=== PATIENT | female | born 1990 | race Caucasian/White ===

== ENCOUNTER 2018-10-11 10:09 | Inpatient (IN) ==
[2018-10-11] MEDS ORDERED: OXYTOCIN 30 UNITS/500 ML BAG IV PRN ×2 (10:42→13:06)
--- NOTE | 2018-10-11 10:48 | History & Physical Report ---
Date of Service October 11, 2018 Assessment & Plan (1) Group B streptococcal carriage complicating : Patient has refused all antibiotic treatment for Group B Strep despite multiple counseling encounters for same. She refuses again today. She is aware of the risks of Group B Strep infection up to and including . Present on Admission?: Yes (2) renal anomaly: Peds aware. Present on Admission?: Yes History of Present Illness Chief Complaint: Contractions Primary Care Provider: NO PCP [id number] sent from office due to contractions and cervical change as compared to exam by that same provider yesterday. No LOF, no VB. Of note patient has been refusing treatment for Group B Strep despite being counseled by multiple providers and pediatricians. Allergies Allergy/AdvReac Type Severity Reaction Status Date / Time No Known Allergies Allergy Unverified 12/09/10 09:04 Home Medications Home Medications Medication Instructions Recorded Confirmed Type vit-iron fum-folic ac 1 tab PO DAILY 10/09/18 10/10/18 History [ Vitamin] Patient History Medical History renal anomaly Group B streptococcal carriage complicating Late care affecting Social History Preferred Language: Korean Beliefs That Will Affect Care: None marital status: Current Living Situation: Spouse Feels Safe at Home: Yes Smoking Status: Never smoker Second Hand Exposure: No Hx Alcohol Use: No Hx Substance Use: No Review of Systems All systems reviewed & are unremarkable except as noted in HPI & below Physical Exam Constitutional: WD/WN, vitals as above Eyes: PERRL, conjunctivae normal, anicteric sclerae ENMT: external ear and nose normal, oropharynx normal Neck: trachea midline, no thyromegaly Respiratory: normal respiratory effort; no respiratory distress Cardiovascular: Rate/Rhythm: regular rate and regular rhythm Gastrointestinal (Abdomen): Gravid / AGA, nontender Musculoskeletal: no cyanosis or clubbing, extremities motor strength 5/5 Skin: no rashes, warm and dry Neurologic: patellar DTR's 2+ bilat, sensation intact Psychiatric: A+Ox3, euthymic affect Genitourinary: Speculum/Bimanual Exam: uterus nontender OB Exam Abdomen: + vertex, + estimated weight (7) and + regular contractions (Q3) Manual OB Exam: + cervical dilation 4 cm, + cervical effacement 90%, + station -2 and + amniotic fluid (No leaking evident) OB Exam Monitor Tracing: + external FHT monitor used, + external uterine monitor used and + category I Lymphatic: no cervical or axillary lymphadenopathy Results & Data Vital Signs (Past 12 Hours) Vital Signs Pulse BP 10/11/18 10:31 80 138/91
[2018-10-11] MEDS: LACTATED RINGER'S 1,000 ML IV PRN ×3 (10:52→17:39)
[2018-10-11 11:03] LABS: Hematocrit (blood only) 36.2 % (37-47); Hemoglobin 12.4 g/dL (12.0-16.0); Mean Corpuscular Volume 87.2 fL (80-100); Mean Platelet Volume 10.8 fL (7.4-10.4); Platelet Count 224 K/uL (130-400); RDW Coefficient of Variation 13.4 % (11.5-14.5); Red Blood Count 4.15 M/uL (4.2-5.4); White Blood Count 14.73 K/uL (4.8-10.8)
[2018-10-11 11:06] LABS: Mean Corpuscular Hgb Conc 34.3 g/dL (32-36)
[2018-10-11] MEDS ORDERED: BUPIVACAINE 0.25% 30 ML VIAL ONE (11:16)
[2018-10-11] MEDS ORDERED: ePHEDrine sulfate 50 MG/ML AMP ONE (11:17)
[2018-10-11] MEDS ORDERED: fentaNYL citrate 100 MCG/2 ML VIAL ONE (11:17)
[2018-10-11] MEDS ORDERED: fentaNYL 2MCG/ML ROPIV 1.25MG/ML 100 ML BAG EPI ONE (11:18)
[2018-10-11 11:20] LABS: Albumin Level 2.8 gm/dl (3.4-5.0); BUN Creatinine Ratio 7.5 (10-20); Bilirubin Direct 0.1 mg/dl (0-0.2); Calcium 8.8 mg/dl (8.5-10.1); Creatinine Clr Calc Pharmacy 98.7 ml/min; Est GFR (African American) 122.6; Est GFR (Non-African American) 105.8; Potassium 4.3 mmol/L (3.5-5.1)
[2018-10-11 11:23] LABS: Albumin Globulin Ratio 0.7 (0.9-2); Bilirubin,Total 0.5 mg/dl (0.2-1); Globulin 4.1 gm/dl (2.5-4.0); Total Protein 6.9 gm/dl (6.4-8.2)
[2018-10-11] MEDS: ePHEDrine sulfate 50 MG/ML AMP IV PRN ×2 (12:05→12:06)
[2018-10-11] MEDS ORDERED: PENICILLIN G POTASSIUM 6 MU in DEXTROSE 5% 250 ML IV STA (12:15)
--- NOTE | 2018-10-11 12:26 | Anesthesiology Consultation ---
Date of Service October 11, 2018 Assessment & Plan Chart Review Chart Review: Acceptable Risk for Surgery and Patient NOT seen in Pre Admission Testing Consults Requested none History Height/Weight Height: 5 ft 1 in Weight: 70.76 kg Allergies Allergy/AdvReac Type Severity Reaction Status Date / Time No Known Allergies Allergy Unverified 12/09/10 09:04 Medications Home Medications Medication Instructions Recorded Confirmed Last Taken vit-iron fum-folic ac 1 tab PO DAILY 10/09/18 10/11/18 10/09/18 [ Vitamin] Past Medical History Medical History renal anomaly Group B streptococcal carriage complicating Late care affecting Past Family History Family History Other No history of previous surgery No known health problems Social History Smoking Status: Never smoker Hx Alcohol Use: No Hx Substance Use: No substance use type: does not use Physical Exam Vital Signs Last Vital Signs Temp 36.4 C L 10/11/18 10:25 Pulse 105 H 10/11/18 12:22 Resp 24 10/11/18 10:25 BP 126/60 10/11/18 12:18 Pulse Ox 97 10/11/18 12:22 Testing Laboratory Results 10/11/18 10:48 10/11/18 10:48
[2018-10-11] MEDS ORDERED: NALOXONE HCL 0.4 MG/1 ML VIAL/CARP IV PRN (12:30)
[2018-10-11] MEDS ORDERED: NALBUPHINE HCL INJ 10 MG/ML AMP IV PRN (12:30)
[2018-10-11] MEDS ORDERED: ONDANSETRON INJ 2 MG/ML 2 ML VIAL IV PRN (12:30)
[2018-10-11] MEDS ORDERED: NALOXONE HCL 1 MG in SODIUM CHLORIDE 0.9% 1000ML 1,000 ML IV PRN (12:30)
[2018-10-11] MEDS ORDERED: DiphenhydrAMINE HCL 50 MG/ML VIAL IV PRN (12:30)
--- NOTE | 2018-10-11 13:14 | Labor Progress Brief Note ---
Date of Service October 11, 2018 Subjective Comfortable with epidural. Lengthy discussion at bedside once again with patient and FOB. They both refuse any antibiotic to be given due to GBS status of mom. When asked to explain their reasoning, they state that "babies shouldn't be given antibiotics unless they are already sick." Also, "We don't want any vaccines or antibiotics. We want our baby to grow up strong and we think giving things to prevent illness blocks the baby from developing its own defenses." I did my best to educate them on the incorrect logic of their choice and the evidence for our recommendation of both antibiotics and vaccines. I discussed that the baby would be held for observation by the magnetic resonance imaging director for at least 48 hours due to the need for diagnosis of any infection that occurs. We reviewed again that GBS sepsis can and sometimes does result in , and that if GBS infection occurred the infant would require antibiotics far in excess of the exposure it would face from prophylaxis. They refuse to accept antibiotics. They do accept augmentation of labor. Assessment & Plan (1) Normal labor and delivery: Patient with labor, GBS positive, refuses antibiotic prophylaxis, accepts augmentation of labor, recommended due to slow change and contractions only every 5 min. AROM reveals thick meconium. Explained significance and risks to parents. Pitocin ordered. Present on Admission?: Yes Physical Exam Genitourinary: Manual OB Exam: + cervical dilation 5 cm, + cervical effacement 100% and + station -2 OB Exam Monitor Tracing: + external uterine monitor used (Q4-5min) and + category I AROM for copious thick particulate meconium fluid. Results & Data Vital Signs (Past 12 Hours) Vital Signs Temp Pulse Resp BP Pulse Ox 10/11/18 13:05 160 H 90/61 L 10/11/18 13:02 105 H 98 10/11/18 12:59 108 H 116/58 L 10/11/18 12:57 100 H 96 10/11/18 12:54 107 H 115/57 L 10/11/18 12:52 102 H 97 10/11/18 12:50 93 H 118/56 L 10/11/18 12:47 105 H 97 10/11/18 12:44 102 H 117/60 10/11/18 12:42 104 H 96 10/11/18 12:40 100 H 116/58 L 10/11/18 12:37 119 H 97 10/11/18 12:35 109 H 120/56 L 10/11/18 12:32 105 H 97 10/11/18 12:29 109 H 122/56 L 10/11/18 12:27 119 H 98 10/11/18 12:25 103 H 119/59 L 10/11/18 12:22 105 H 97 10/11/18 12:18 112 H 126/60 10/11/18 12:17 120 H 98 10/11/18 12:16 110 H 121/60 10/11/18 12:14 104 H 129/62 10/11/18 12:12 91 H 137/72 98 10/11/18 12:10 59 L 137/80 10/11/18 12:09 72 125/72 10/11/18 12:07 84 99 10/11/18 12:06 148 H 66/35 L 10/11/18 12:04 123 H 86/43 L 10/11/18 12:03 150 H 116/51 L 10/11/18 12:02 149 H 99 10/11/18 12:00 99 H 131/68 10/11/18 11:58 94 H 121/79 10/11/18 11:57 91 H 96 10/11/18 11:56 87 123/78 10/11/18 11:52 99 H 99 10/11/18 11:47 97 H 98 10/11/18 11:44 87 127/82 10/11/18 11:42 82 98 10/11/18 10:31 80 138/91 10/11/18 10:25 36.4 C L 24
--- NOTE | 2018-10-11 13:51 | Labor Progress Brief Note ---
Date of Service October 11, 2018 Assessment & Plan (1) Group B streptococcal carriage complicating : Patient and FOB were presented with a refusal of medical treatment form detailing the risks and benefits of Group B Strep prophylaxis, and releasing the hospital and providers from liability resulting from their refusal. At this, the FOB said that he did not want to sign the form. We discussed that either the patient should be receiving prophylaxis or we would need to document that this form had been read to and reviewed with the couple and that they were aware of its contents and were still refusing treatment, regardless of whether they elected to sign, due to the serious possible consequences of their choice. The FOB asked for time to discuss with his and we (LEONARD Carson) left the room for several minutes. On our return the FOB stated that the patient wanted to accept the antibiotic but ONLY if it is nothing beyond penicillin, that is the only one we accept. We reviewed that the antibiotic we plan to use is penicillin as was documented having been discussed with them at some length on several previous occasions. We confirmed that the patient is not known to be penicillin allergic. We discussed that ideally two doses would be received prior to , and that we are now getting a late start given their failure to accept treatment prior to this point. We will redose at the usual interval and hope for a minimum of 2 doses prior to delivery, and that if less than 2 doses are received prior to , monitoring for 48 hours is still going to be required. They are aware that pitocin is also ordered to help minimize the length of labor and possible time of exposure to Group B Strep bacteria, and they consent to use of pitocin. Present on Admission?: Yes Results & Data Vital Signs (Past 12 Hours) Vital Signs Temp Pulse Resp BP Pulse Ox 10/11/18 13:39 110 H 120/75 10/11/18 13:38 129 H 99 10/11/18 13:35 129 H 123/75 10/11/18 13:33 103 H 99 10/11/18 13:29 117 H 120/63 10/11/18 13:28 100 H 97 10/11/18 13:24 91 H 119/64 10/11/18 13:23 98 H 97 10/11/18 13:20 107 H 128/56 L 10/11/18 13:18 112 H 98 10/11/18 13:15 139 H 101/62 10/11/18 13:13 140 H 98 10/11/18 13:10 146 H 100/56 L 10/11/18 13:08 124 H 97 10/11/18 13:05 160 H 90/61 L 10/11/18 13:02 105 H 98 10/11/18 12:59 108 H 116/58 L 10/11/18 12:57 100 H 96 10/11/18 12:54 107 H 115/57 L 10/11/18 12:52 102 H 97 10/11/18 12:50 93 H 118/56 L 10/11/18 12:47 105 H 97 10/11/18 12:44 102 H 117/60 10/11/18 12:42 104 H 96 10/11/18 12:40 100 H 116/58 L 10/11/18 12:37 119 H 97 10/11/18 12:35 109 H 120/56 L 10/11/18 12:32 105 H 97 10/11/18 12:29 109 H 122/56 L 10/11/18 12:27 119 H 98 10/11/18 12:25 103 H 119/59 L 10/11/18 12:22 105 H 97 10/11/18 12:18 112 H 126/60 10/11/18 12:17 120 H 98 10/11/18 12:16 110 H 121/60 10/11/18 12:14 104 H 129/62 10/11/18 12:12 91 H 137/72 98 10/11/18 12:10 59 L 137/80 10/11/18 12:09 72 125/72 10/11/18 12:07 84 99 10/11/18 12:06 148 H 66/35 L 10/11/18 12:04 123 H 86/43 L 10/11/18 12:03 150 H 116/51 L 10/11/18 12:02 149 H 99 10/11/18 12:00 99 H 131/68 10/11/18 11:58 94 H 121/79 10/11/18 11:57 91 H 96 10/11/18 11:56 87 123/78 10/11/18 11:52 99 H 99 10/11/18 11:47 97 H 98 07/30/19 11:44 87 127/82 10/11/18 11:42 82 98 10/11/18 10:31 80 138/91 10/11/18 10:25 36.4 C L 24
--- NOTE | 2018-10-11 17:32 | Labor Progress Brief Note ---
Date of Service October 11, 2018 Subjective Feeling pressure, otherwise comfortable with epidural. Assessment & Plan (1) Normal labor and delivery: Pitocin was not running when I entered the room. The contraction pattern was felt previously to be adequate by RN so it was not started. At this time given lack of cervical change, pitocin to be run as ordered. Present on Admission?: Yes (2) Group B streptococcal carriage complicating : Penicillin second dose to be hung in near future; patient and FOB continue to be agreeable at this time. Present on Admission?: Yes Physical Exam Genitourinary: Manual OB Exam: + cervical dilation 5 cm, + cervical effacement 90%, + station -2 and + amniotic fluid meconium OB Exam Monitor Tracing: + external FHT monitor used, + external uterine monitor used (Q3-4m) and + category I Results & Data Vital Signs (Past 12 Hours) Vital Signs Temp Pulse Resp BP Pulse Ox 10/11/18 17:23 83 97 10/11/18 17:18 84 97 10/11/18 17:14 86 120/73 10/11/18 17:13 80 97 10/11/18 17:08 100 H 98 10/11/18 17:03 82 97 10/11/18 16:58 92 H 97 10/11/18 16:53 85 97 10/11/18 16:48 80 97 10/11/18 16:44 36.5 C 83 18 131/86 10/11/18 16:43 105 H 97 10/11/18 16:38 82 97 10/11/18 16:33 75 97 10/11/18 16:30 73 122/65 10/11/18 16:28 85 96 10/11/18 16:23 72 97 10/11/18 16:18 81 96 10/11/18 16:16 75 124/68 10/11/18 16:13 94 H 97 10/11/18 16:08 71 97 10/11/18 16:03 74 97 10/11/18 16:01 69 109/66 10/11/18 15:58 77 97 10/11/18 15:53 83 96 10/11/18 15:48 82 97 10/11/18 15:46 84 118/66 10/11/18 15:43 81 97 10/11/18 15:38 76 97 10/11/18 15:33 86 96 10/11/18 15:31 80 112/65 10/11/18 15:28 86 97 10/11/18 15:23 78 97 10/11/18 15:18 86 96 10/11/18 15:16 83 115/67 10/11/18 15:13 82 97 10/11/18 15:08 84 97 10/11/18 15:03 88 98 10/11/18 14:59 36.6 C 88 16 118/72 10/11/18 14:58 89 97 10/11/18 14:53 98 H 97 10/11/18 14:48 97 H 97 10/11/18 14:45 87 121/76 10/11/18 14:43 111 H 98 10/11/18 14:38 92 H 97 10/11/18 14:33 99 H 98 10/11/18 14:29 88 118/65 10/11/18 14:28 92 H 98 10/11/18 14:23 97 H 99 10/11/18 14:18 102 H 100 10/11/18 14:15 92 H 119/64 10/11/18 14:13 90 99 10/11/18 14:08 93 H 100 10/11/18 14:03 99 H 99 10/11/18 14:02 36.5 C 18 10/11/18 14:00 96 H 121/71 10/11/18 13:58 115 H 99 10/11/18 13:53 103 H 99 10/11/18 13:48 105 H 98 10/11/18 13:44 99 H 120/71 10/11/18 13:43 104 H 99 10/11/18 13:39 110 H 120/75 10/11/18 13:38 129 H 99 10/11/18 13:35 129 H 123/75 10/11/18 13:33 103 H 99 10/11/18 13:29 117 H 120/63 10/11/18 13:28 100 H 97 10/11/18 13:24 91 H 119/64 10/11/18 13:23 98 H 97 10/11/18 13:20 107 H 128/56 L 10/11/18 13:18 112 H 98 10/11/18 13:15 139 H 101/62 10/11/18 13:13 140 H 98 07/30/19 13:10 146 H 100/56 L 10/11/18 13:08 124 H 97 10/11/18 13:05 160 H 90/61 L 10/11/18 13:02 105 H 98 10/11/18 12:59 108 H 116/58 L 10/11/18 12:57 100 H 96 10/11/18 12:54 107 H 115/57 L 10/11/18 12:52 102 H 97 10/11/18 12:50 93 H 118/56 L 10/11/18 12:47 105 H 97 10/11/18 12:44 102 H 117/60 10/11/18 12:42 104 H 96 10/11/18 12:40 100 H 116/58 L 10/11/18 12:37 119 H 97 10/11/18 12:35 109 H 120/56 L 10/11/18 12:32 105 H 97 10/11/18 12:29 109 H 122/56 L 10/11/18 12:27 119 H 98 10/11/18 12:25 103 H 119/59 L 10/11/18 12:22 105 H 97 10/11/18 12:18 112 H 126/60 10/11/18 12:17 120 H 98 10/11/18 12:16 110 H 121/60 10/11/18 12:14 104 H 129/62 10/11/18 12:12 91 H 137/72 98 10/11/18 12:10 59 L 137/80 10/11/18 12:09 72 125/72 10/11/18 12:07 84 99 10/11/18 12:06 148 H 66/35 L 10/11/18 12:04 123 H 86/43 L 10/11/18 12:03 150 H 116/51 L 10/11/18 12:02 149 H 99 10/11/18 12:00 99 H 131/68 10/11/18 11:58 94 H 121/79 10/11/18 11:57 91 H 96 10/11/18 11:56 87 123/78 10/11/18 11:52 99 H 99 10/11/18 11:47 97 H 98 10/11/18 11:44 87 127/82 10/11/18 11:42 82 98 10/11/18 10:31 80 138/91 10/11/18 10:25 36.4 C L 24
[2018-10-11] MEDS: PENICILLIN G POTASSIUM 3 MU in DEXTROSE 5% 100 ML IV PRN ×2 (17:40→21:33)
[2018-10-11] MEDS: fentaNYL 2MCG/ML ROPIV 1.25MG/ML 100 ML BAG EPI PRN (20:01)
--- NOTE | 2018-10-11 20:28 | Labor Progress Brief Note ---
Date of Service October 11, 2018 Subjective Feeling pressure, otherwise comfortable with epidural. Assessment & Plan (1) Normal labor and delivery: Progress very slow. Labial edema mild and equally bilaterally but definitely present. Discussed these can be signs of baby unable to fit through pelvis. Meconium remains present. FHT remain Cat 1. Offered IUPC to allow upward titration of pitocin which has remained at 5 due to contraction pattern. FOB and Patient agreeable to placement. Done without difficulty, and early MVU appox 140. Titrate to goal MVU 250. Present on Admission?: Yes (2) Group B streptococcal carriage complicating : Pencillin two doses now given Present on Admission?: Yes Physical Exam Genitourinary: Manual OB Exam: + cervical dilation 6 cm, + cervical effacement 100%, + station -2 and + amniotic fluid meconium OB Exam Monitor Tracing: + intra-uterine pressure catheter used (IUPC Placed after counseling patient and FOB on r/b/a) and + category I Results & Data Vital Signs (Past 12 Hours) Vital Signs Temp Pulse Resp BP Pulse Ox 10/11/18 20:23 89 97 10/11/18 20:18 84 97 10/11/18 20:16 81 125/73 10/11/18 20:13 89 97 10/11/18 20:08 85 98 10/11/18 20:03 84 98 10/11/18 19:58 79 97 10/11/18 19:53 87 98 10/11/18 19:48 76 98 10/11/18 19:44 74 120/71 10/11/18 19:43 76 97 10/11/18 19:38 75 97 10/11/18 19:33 82 96 10/11/18 19:28 83 98 10/11/18 19:23 83 98 10/11/18 19:18 80 97 10/11/18 19:14 93 H 116/74 10/11/18 19:13 84 97 10/11/18 19:08 90 98 10/11/18 19:03 84 96 10/11/18 18:58 77 96 10/11/18 18:53 79 97 10/11/18 18:48 72 97 10/11/18 18:44 83 109/67 10/11/18 18:43 77 97 10/11/18 18:38 80 97 10/11/18 18:33 75 97 10/11/18 18:28 80 97 10/11/18 18:23 80 97 10/11/18 18:18 85 97 10/11/18 18:16 80 117/72 10/11/18 18:13 77 98 10/11/18 18:08 84 98 10/11/18 18:03 76 97 10/11/18 17:58 86 97 10/11/18 17:53 82 98 10/11/18 17:51 36.6 C 16 10/11/18 17:48 104 H 98 10/11/18 17:45 80 126/74 10/11/18 17:43 79 97 10/11/18 17:38 88 97 10/11/18 17:33 76 96 10/11/18 17:28 93 H 96 10/11/18 17:25 18 10/11/18 17:23 83 97 10/11/18 17:18 84 97 10/11/18 17:14 86 18 120/73 10/11/18 17:13 80 97 10/11/18 17:08 100 H 98 10/11/18 17:03 82 97 10/11/18 16:58 92 H 97 10/11/18 16:53 85 97 10/11/18 16:48 80 97 10/11/18 16:44 36.5 C 83 18 131/86 10/11/18 16:43 105 H 97 10/11/18 16:38 82 97 10/11/18 16:33 75 97 10/11/18 16:30 73 122/65 10/11/18 16:28 85 96 10/11/18 16:23 72 97 10/11/18 16:18 81 96 10/11/18 16:16 75 18 124/68 10/11/18 16:13 94 H 97 10/11/18 16:08 71 97 10/11/18 16:03 74 97 10/11/18 16:01 69 109/66 10/11/18 15:58 77 97 10/11/18 15:53 83 96 10/11/18 15:48 82 97 10/11/18 15:46 84 18 118/66 10/11/18 15:43 81 97 10/11/18 15:38 76 97 10/11/18 15:33 86 96 10/11/18 15:31 80 112/65 10/11/18 15:28 86 97 10/11/18 15:23 78 20 97 10/11/18 15:18 86 96 10/11/18 15:16 83 115/67 10/11/18 15:13 82 97 10/11/18 15:08 84 97 10/11/18 15:03 88 98 10/11/18 14:59 36.6 C 88 16 118/72 10/11/18 14:58 89 97 10/11/18 14:53 98 H 97 10/11/18 14:48 97 H 97 10/11/18 14:45 87 121/76 10/11/18 14:43 111 H 98 10/11/18 14:38 92 H 97 10/11/18 14:33 99 H 98 10/11/18 14:29 88 118/65 10/11/18 14:28 92 H 98 10/11/18 14:23 97 H 99 10/11/18 14:18 102 H 100 10/11/18 14:15 92 H 119/64 10/11/18 14:13 90 99 10/11/18 14:08 93 H 100 10/11/18 14:03 99 H 99 10/11/18 14:02 36.5 C 18 10/11/18 14:00 96 H 121/71 10/11/18 13:58 115 H 99 10/11/18 13:53 103 H 99 10/11/18 13:48 105 H 98 10/11/18 13:44 99 H 120/71 10/11/18 13:43 104 H 99 10/11/18 13:39 110 H 120/75 10/11/18 13:38 129 H 99 10/11/18 13:35 129 H 123/75 10/11/18 13:33 103 H 99 10/11/18 13:29 117 H 120/63 10/11/18 13:28 100 H 97 10/11/18 13:24 91 H 119/64 10/11/18 13:23 98 H 97 10/11/18 13:20 107 H 128/56 L 10/11/18 13:18 112 H 98 10/11/18 13:15 139 H 101/62 10/11/18 13:13 140 H 98 10/11/18 13:10 146 H 100/56 L 10/11/18 13:08 124 H 97 10/11/18 13:05 160 H 90/61 L 10/11/18 13:02 105 H 98 10/11/18 12:59 108 H 116/58 L 10/11/18 12:57 100 H 96 10/11/18 12:54 107 H 115/57 L 10/11/18 12:52 102 H 97 10/11/18 12:50 93 H 118/56 L 10/11/18 12:47 105 H 97 10/11/18 12:44 102 H 117/60 10/11/18 12:42 104 H 96 10/11/18 12:40 100 H 116/58 L 10/11/18 12:37 119 H 97 10/11/18 12:35 109 H 120/56 L 10/11/18 12:32 105 H 97 10/11/18 12:29 109 H 122/56 L 10/11/18 12:27 119 H 98 10/11/18 12:25 103 H 119/59 L 10/11/18 12:22 105 H 97 10/11/18 12:18 112 H 126/60 10/11/18 12:17 120 H 98 10/11/18 12:16 110 H 121/60 10/11/18 12:14 104 H 129/62 10/11/18 12:12 91 H 137/72 98 10/11/18 12:10 59 L 137/80 10/11/18 12:09 72 125/72 10/11/18 12:07 84 99 10/11/18 12:06 148 H 66/35 L 10/11/18 12:04 123 H 86/43 L 10/11/18 12:03 150 H 116/51 L 10/11/18 12:02 149 H 99 10/11/18 12:00 99 H 131/68 10/11/18 11:58 94 H 121/79 10/11/18 11:57 91 H 96 10/11/18 11:56 87 123/78 10/11/18 11:52 99 H 99 10/11/18 11:47 97 H 98 10/11/18 11:44 87 127/82 10/11/18 11:42 82 98 10/11/18 10:31 80 138/91 10/11/18 10:25 36.4 C L 24
[2018-10-12] MEDS: fentaNYL 2MCG/ML ROPIV 1.25MG/ML 100 ML BAG EPI PRN ×3 (01:35→06:52)
--- NOTE | 2018-10-12 01:37 | Labor Progress Brief Note ---
Date of Service October 12, 2018 Subjective Comfortable with epidural. Assessment & Plan (1) Group B streptococcal carriage complicating : Penicillin being used Present on Admission?: Yes (2) Normal labor and delivery: Patient counseled that at this time her cervix is not fully dilated. Per the nurse it was 9cm and a true/thin 100% before, and at my check I would say 9cm but cervix is a bit puffy and has consistency of marshmallow, possibly c/w some new edema. Discouraged pushing efforts until full dilation. Discussed FHT showing elevated baseline, though no maternal fever yet detected. Discussed labial edema which may indicate this baby is a tight fit or too large to pass through her pelvis. Discussed options including proceeding to section at this time, versus continuing attempt to deliver vaginally. FOCherelle and RN Coral present for these discussions. Patient at this time elects to continue augmentation and attempt vaginal de livery. Present on Admission?: Yes Physical Exam Physical Exam: FHT 165 mod ramy +acc +early dec [place] Q2, MVU 250 Cvx 9/90/0 Labial edema moderate bilaterally, worse than at my last check Noted to be pushing during her contractions; counseled repeatedly by nurses not to do so until full dilation, and stopped for the three contractions while I was in the room, but then resumed. Results & Data Vital Signs (Past 12 Hours) Vital Signs Temp Pulse Resp BP Pulse Ox 10/12/18 01:28 84 100 10/12/18 01:23 90 100 10/12/18 01:19 105 H 94 10/12/18 01:18 86 97 10/12/18 01:14 90 109/64 10/12/18 01:13 102 H 98 10/12/18 01:08 92 H 100 10/12/18 01:03 112 H 98 10/12/18 00:58 96 H 98 10/12/18 00:53 103 H 100 10/12/18 00:48 105 H 99 10/12/18 00:45 82 120/63 10/12/18 00:43 90 99 10/12/18 00:38 104 H 100 10/12/18 00:33 94 H 100 10/12/18 00:28 99 H 98 10/12/18 00:23 87 97 10/12/18 00:18 133 H 99 10/12/18 00:15 93 H 127/66 10/12/18 00:13 98 H 97 10/12/18 00:08 110 H 98 10/12/18 00:03 101 H 100 10/12/18 00:00 37.0 C 20 10/11/18 23:58 112 H 99 10/11/18 23:53 103 H 99 10/11/18 23:48 101 H 100 10/11/18 23:45 85 133/74 10/11/18 23:43 92 H 100 10/11/18 23:38 98 H 100 10/11/18 23:33 110 H 100 10/11/18 23:28 112 H 100 10/11/18 23:23 106 H 100 10/11/18 23:18 94 H 100 10/11/18 23:14 86 135/75 10/11/18 23:13 102 H 100 10/11/18 23:08 104 H 100 10/11/18 23:03 94 H 100 10/11/18 22:58 98 H 100 10/11/18 22:53 101 H 100 10/11/18 22:48 96 H 100 10/11/18 22:44 96 H 126/83 10/11/18 22:43 92 H 99 10/11/18 22:38 102 H 100 10/11/18 22:33 104 H 99 10/11/18 22:28 94 H 99 10/11/18 22:23 88 100 10/11/18 22:18 101 H 99 10/11/18 22:14 83 132/83 10/11/18 22:13 86 100 10/11/18 22:08 102 H 98 10/11/18 22:03 104 H 98 10/11/18 21:58 86 99 10/11/18 21:53 95 H 99 10/11/18 21:48 89 98 10/11/18 21:45 36.7 C 18 10/11/18 21:44 96 H 133/78 10/11/18 21:43 81 97 10/11/18 21:38 101 H 98 10/11/18 21:33 102 H 97 10/11/18 21:28 94 H 97 10/11/18 21:23 83 97 10/11/18 21:18 77 97 10/11/18 21:16 75 130/81 10/11/18 21:13 86 96 10/11/18 21:08 76 97 10/11/18 21:03 77 97 10/11/18 20:58 94 H 98 10/11/18 20:53 96 H 98 10/11/18 20:48 74 97 10/11/18 20:44 96 H 126/74 10/11/18 20:43 86 97 10/11/18 20:38 88 97 10/11/18 20:33 79 98 10/11/18 20:28 102 H 97 10/11/18 20:23 89 97 10/11/18 20:18 84 97 10/11/18 20:16 81 125/73 10/11/18 20:13 89 97 10/11/18 20:08 85 98 10/11/18 20:03 84 98 10/11/18 20:00 36.6 C 18 10/11/18 19:58 79 97 10/11/18 19:53 87 98 10/11/18 19:48 76 98 10/11/18 19:44 74 120/71 10/11/18 19:43 76 97 10/11/18 19:38 75 97 10/11/18 19:33 82 96 10/11/18 19:28 83 98 10/11/18 19:23 83 98 10/11/18 19:18 80 97 10/11/18 19:14 93 H 116/74 10/11/18 19:13 84 97 10/11/18 19:08 90 98 10/11/18 19:03 84 96 10/11/18 18:58 77 96 10/11/18 18:53 79 97 10/11/18 18:48 72 97 10/11/18 18:44 83 109/67 10/11/18 18:43 77 97 10/11/18 18:38 80 97 10/11/18 18:33 75 97 10/11/18 18:28 80 97 10/11/18 18:23 80 97 10/11/18 18:18 85 97 10/11/18 18:16 80 117/72 10/11/18 18:13 77 98 10/11/18 18:08 84 98 10/11/18 18:03 76 97 10/11/18 17:58 86 97 10/11/18 17:53 82 98 10/11/18 17:51 36.6 C 16 10/11/18 17:48 104 H 98 10/11/18 17:45 80 126/74 10/11/18 17:43 79 97 10/11/18 17:38 88 97 10/11/18 17:33 76 96 10/11/18 17:28 93 H 96 10/11/18 17:25 18 10/11/18 17:23 83 97 10/11/18 17:18 84 97 10/11/18 17:14 86 18 120/73 10/11/18 17:13 80 97 10/11/18 17:08 100 H 98 10/11/18 17:03 82 97 10/11/18 16:58 92 H 97 10/11/18 16:53 85 97 10/11/18 16:48 80 97 10/11/18 16:44 36.5 C 83 18 131/86 10/11/18 16:43 105 H 97 10/11/18 16:38 82 97 10/11/18 16:33 75 97 10/11/18 16:30 73 122/65 10/11/18 16:28 85 96 10/11/18 16:23 72 97 10/11/18 16:18 81 96 10/11/18 16:16 75 18 124/68 10/11/18 16:13 94 H 97 10/11/18 16:08 71 97 10/11/18 16:03 74 97 10/11/18 16:01 69 109/66 10/11/18 15:58 77 97 10/11/18 15:53 83 96 10/11/18 15:48 82 97 10/11/18 15:46 84 18 118/66 10/11/18 15:43 81 97 10/11/18 15:38 76 97 10/11/18 15:33 86 96 10/11/18 15:31 80 112/65 10/11/18 15:28 86 97 10/11/18 15:23 78 20 97 10/11/18 15:18 86 96 10/11/18 15:16 83 115/67 10/11/18 15:13 82 97 10/11/18 15:08 84 97 10/11/18 15:03 88 98 10/11/18 14:59 36.6 C 88 16 118/72 10/11/18 14:58 89 97 10/11/18 14:53 98 H 97 10/11/18 14:48 97 H 97 10/11/18 14:45 87 121/76 10/11/18 14:43 111 H 98 10/11/18 14:38 92 H 97 10/11/18 14:33 99 H 98 10/11/18 14:29 88 118/65 10/11/18 14:28 92 H 98 10/11/18 14:23 97 H 99 10/11/18 14:18 102 H 100 10/11/18 14:15 92 H 119/64 10/11/18 14:13 90 99 10/11/18 14:08 93 H 100 10/11/18 14:03 99 H 99 10/11/18 14:02 36.5 C 18 10/11/18 14:00 96 H 121/71 10/11/18 13:58 115 H 99 10/11/18 13:53 103 H 99 10/11/18 13:48 105 H 98 10/11/18 13:44 99 H 120/71 10/11/18 13:43 104 H 99 10/11/18 13:39 110 H 120/75 10/11/18 13:38 129 H 99 10/11/18 13:35 129 H 123/75 10/11/18 13:33 103 H 99
[2018-10-12] MEDS: PENICILLIN G POTASSIUM 3 MU in DEXTROSE 5% 100 ML IV PRN ×2 (01:55→05:58)
--- NOTE | 2018-10-12 04:40 | Labor Progress Brief Note ---
Date of Service October 12, 2018 Subjective Epidural, feeling some pressure now Assessment & Plan (1) Normal labor and delivery: Progress is evident between my last exam and this one, though she is stil not completely dilated yet. Pit @ 17. Discussed labial edema still present but not worse than last exam, still unsure if we will succeed at vaginal delivery, but progress is occurring and patient wishes to continue. Present on Admission?: Yes (2) Group B streptococcal carriage complicating : PCN continues Present on Admission?: Yes Physical Exam Physical Exam: Cvx 9.5/100/0 Cervix now paper thin, just a tiny rim palpable ant and post. Vertex has descended compared with prior exam. FHT 155 mod ramy +acc -dec [place] Q2min, IUPC fell out when patient sat in high castro's by RN, replaced during my exam. Results & Data Vital Signs (Past 12 Hours) Vital Signs Temp Pulse Resp BP Pulse Ox 10/12/18 04:33 79 97 10/12/18 04:28 77 98 10/12/18 04:23 93 H 98 10/12/18 04:18 91 H 98 10/12/18 04:13 80 99 10/12/18 04:08 89 99 10/12/18 04:06 36.7 C 18 10/12/18 04:03 97 H 100 10/12/18 03:58 83 98 10/12/18 03:53 99 H 98 10/12/18 03:48 85 97 10/12/18 03:44 82 125/57 L 10/12/18 03:43 93 H 98 10/12/18 03:38 82 97 10/12/18 03:33 94 H 98 10/12/18 03:28 79 98 10/12/18 03:23 90 98 10/12/18 03:18 83 100 10/12/18 03:15 83 132/67 10/12/18 03:13 95 H 99 10/12/18 03:08 85 98 10/12/18 03:03 89 99 10/12/18 03:00 18 10/12/18 02:58 86 99 10/12/18 02:53 94 H 100 10/12/18 02:48 105 H 98 10/12/18 02:45 92 H 119/65 10/12/18 02:43 72 97 10/12/18 02:38 94 H 97 10/12/18 02:33 98 H 97 10/12/18 02:28 94 H 97 10/12/18 02:23 77 97 10/12/18 02:18 96 H 98 10/12/18 02:14 92 H 115/72 10/12/18 02:13 92 H 97 10/12/18 02:08 97 H 98 10/12/18 02:03 94 H 100 10/12/18 02:00 37.1 C 18 10/12/18 01:58 83 98 10/12/18 01:53 90 98 10/12/18 01:48 83 99 10/12/18 01:45 83 131/82 10/12/18 01:43 85 98 10/12/18 01:38 90 100 10/12/18 01:33 90 99 10/12/18 01:28 84 100 10/12/18 01:23 90 100 10/12/18 01:19 105 H 94 10/12/18 01:18 86 97 10/12/18 01:14 90 109/64 10/12/18 01:13 102 H 98 10/12/18 01:08 92 H 100 10/12/18 01:03 112 H 98 10/12/18 00:58 96 H 98 10/12/18 00:53 103 H 100 10/12/18 00:48 105 H 99 10/12/18 00:45 82 120/63 10/12/18 00:43 90 99 10/12/18 00:38 104 H 100 10/12/18 00:33 94 H 100 10/12/18 00:28 99 H 98 10/12/18 00:23 87 97 10/12/18 00:18 133 H 99 10/12/18 00:15 93 H 127/66 10/12/18 00:13 98 H 97 10/12/18 00:08 110 H 98 10/12/18 00:03 101 H 100 10/12/18 00:00 37.0 C 20 10/11/18 23:58 112 H 99 10/11/18 23:53 103 H 99 10/11/18 23:48 101 H 100 10/11/18 23:45 85 133/74 10/11/18 23:43 92 H 100 10/11/18 23:38 98 H 100 10/11/18 23:33 110 H 100 10/11/18 23:28 112 H 100 10/11/18 23:23 106 H 100 10/11/18 23:18 94 H 100 10/11/18 23:14 86 135/75 10/11/18 23:13 102 H 100 10/11/18 23:08 104 H 100 10/11/18 23:03 94 H 100 10/11/18 22:58 98 H 100 10/11/18 22:53 101 H 100 10/11/18 22:48 96 H 100 10/11/18 22:44 96 H 126/83 10/11/18 22:43 92 H 99 10/11/18 22:38 102 H 100 10/11/18 22:33 104 H 99 10/11/18 22:28 94 H 99 10/11/18 22:23 88 100 10/11/18 22:18 101 H 99 10/11/18 22:14 83 132/83 10/11/18 22:13 86 100 10/11/18 22:08 102 H 98 10/11/18 22:03 104 H 98 10/11/18 21:58 86 99 10/11/18 21:53 95 H 99 10/11/18 21:48 89 98 10/11/18 21:45 36.7 C 18 10/11/18 21:44 96 H 133/78 10/11/18 21:43 81 97 10/11/18 21:38 101 H 98 10/11/18 21:33 102 H 97 10/11/18 21:28 94 H 97 10/11/18 21:23 83 97 10/11/18 21:18 77 97 10/11/18 21:16 75 130/81 10/11/18 21:13 86 96 10/11/18 21:08 76 97 10/11/18 21:03 77 97 10/11/18 20:58 94 H 98 10/11/18 20:53 96 H 98 10/11/18 20:48 74 97 10/11/18 20:44 96 H 126/74 10/11/18 20:43 86 97 10/11/18 20:38 88 97 10/11/18 20:33 79 98 10/11/18 20:28 102 H 97 10/11/18 20:23 89 97 10/11/18 20:18 84 97 10/11/18 20:16 81 125/73 10/11/18 20:13 89 97 10/11/18 20:08 85 98 10/11/18 20:03 84 98 10/11/18 20:00 36.6 C 18 10/11/18 19:58 79 97 10/11/18 19:53 87 98 10/11/18 19:48 76 98 10/11/18 19:44 74 120/71 10/11/18 19:43 76 97 10/11/18 19:38 75 97 10/11/18 19:33 82 96 10/11/18 19:28 83 98 10/11/18 19:23 83 98 10/11/18 19:18 80 97 10/11/18 19:14 93 H 116/74 10/11/18 19:13 84 97 10/11/18 19:08 90 98 10/11/18 19:03 84 96 10/11/18 18:58 77 96 10/11/18 18:53 79 97 10/11/18 18:48 72 97 10/11/18 18:44 83 109/67 10/11/18 18:43 77 97 10/11/18 18:38 80 97 10/11/18 18:33 75 97 10/11/18 18:28 80 97 10/11/18 18:23 80 97 10/11/18 18:18 85 97 10/11/18 18:16 80 117/72 10/11/18 18:13 77 98 10/11/18 18:08 84 98 10/11/18 18:03 76 97 10/11/18 17:58 86 97 10/11/18 17:53 82 98 10/11/18 17:51 36.6 C 16 10/11/18 17:48 104 H 98 10/11/18 17:45 80 126/74 10/11/18 17:43 79 97 10/11/18 17:38 88 97 10/11/18 17:33 76 96 10/11/18 17:28 93 H 96 10/11/18 17:25 18 10/11/18 17:23 83 97 10/11/18 17:18 84 97 10/11/18 17:14 86 18 120/73 10/11/18 17:13 80 97 10/11/18 17:08 100 H 98 10/11/18 17:03 82 97 10/11/18 16:58 92 H 97 10/11/18 16:53 85 97 10/11/18 16:48 80 97 10/11/18 16:44 36.5 C 83 18 131/86 10/11/18 16:43 105 H 97 10/11/18 16:38 82 97
[2018-10-12] MEDS: LACTATED RINGER'S 1,000 ML IV PRN (05:15)
--- NOTE | 2018-10-12 06:25 | Labor Progress Brief Note ---
Date of Service October 12, 2018 Subjective Lots of pelvic / vaginal pressure. Strong urge to push. Assessment & Plan (1) Normal labor and delivery: Patient is complete with urge to push. Second stage begun. Fetus in DOP position, with anterior lip of cervix dragged downwards on first push but able to be reduced and stayed back with next two pushes. Proceed with second stage. Present on Admission?: Yes (2) Group B streptococcal carriage complicating : PCN continues Present on Admission?: Yes Physical Exam Genitourinary: Manual OB Exam: + cervical dilation 10 cm, + cervical effacement 100% and + station + 1 and + 2 (Molding/Caput reaches to +2) OB Exam Monitor Tracing: + category I Results & Data Vital Signs (Past 12 Hours) Vital Signs Temp Pulse Resp BP Pulse Ox 10/12/18 06:18 128 H 100 10/12/18 06:16 122 H 140/100 10/12/18 06:13 130 H 100 10/12/18 06:08 99 H 98 10/12/18 06:03 115 H 99 10/12/18 05:58 95 H 95 10/12/18 05:56 106 H 94 10/12/18 05:53 96 H 98 10/12/18 05:48 91 H 98 10/12/18 05:45 36.8 C 97 H 126/67 10/12/18 05:43 103 H 99 10/12/18 05:38 87 97 10/12/18 05:33 94 H 99 10/12/18 05:28 89 96 10/12/18 05:23 83 99 10/12/18 05:18 99 H 96 10/12/18 05:15 82 116/66 10/12/18 05:13 88 97 10/12/18 05:08 115 H 100 10/12/18 05:03 89 98 10/12/18 04:58 100 H 98 10/12/18 04:53 86 98 10/12/18 04:48 94 H 97 10/12/18 04:46 95 H 118/75 10/12/18 04:43 85 97 10/12/18 04:38 102 H 97 10/12/18 04:33 79 97 10/12/18 04:28 77 98 10/12/18 04:23 93 H 98 10/12/18 04:18 91 H 98 10/12/18 04:13 80 99 10/12/18 04:08 89 99 10/12/18 04:06 36.7 C 18 10/12/18 04:03 97 H 100 10/12/18 03:58 83 98 10/12/18 03:53 99 H 98 10/12/18 03:48 85 97 10/12/18 03:44 82 125/57 L 10/12/18 03:43 93 H 98 10/12/18 03:38 82 97 10/12/18 03:33 94 H 98 10/12/18 03:28 79 98 10/12/18 03:23 90 98 10/12/18 03:18 83 100 10/12/18 03:15 83 132/67 10/12/18 03:13 95 H 99 10/12/18 03:08 85 98 10/12/18 03:03 89 99 10/12/18 03:00 18 10/12/18 02:58 86 99 10/12/18 02:53 94 H 100 10/12/18 02:48 105 H 98 10/12/18 02:45 92 H 119/65 10/12/18 02:43 72 97 10/12/18 02:38 94 H 97 10/12/18 02:33 98 H 97 10/12/18 02:28 94 H 97 10/12/18 02:23 77 97 10/12/18 02:18 96 H 98 10/12/18 02:14 92 H 115/72 10/12/18 02:13 92 H 97 10/12/18 02:08 97 H 98 10/12/18 02:03 94 H 100 10/12/18 02:00 37.1 C 18 10/12/18 01:58 83 98 10/12/18 01:53 90 98 10/12/18 01:48 83 99 10/12/18 01:45 83 131/82 10/12/18 01:43 85 98 10/12/18 01:38 90 100 10/12/18 01:33 90 99 10/12/18 01:28 84 100 10/12/18 01:23 90 100 10/12/18 01:19 105 H 94 10/12/18 01:18 86 97 10/12/18 01:14 90 109/64 10/12/18 01:13 102 H 98 10/12/18 01:08 92 H 100 10/12/18 01:03 112 H 98 10/12/18 00:58 96 H 98 10/12/18 00:53 103 H 100 10/12/18 00:48 105 H 99 10/12/18 00:45 82 120/63 10/12/18 00:43 90 99 10/12/18 00:38 104 H 100 10/12/18 00:33 94 H 100 10/12/18 00:28 99 H 98 10/12/18 00:23 87 97 10/12/18 00:18 133 H 99 10/12/18 00:15 93 H 127/66 10/12/18 00:13 98 H 97 10/12/18 00:08 110 H 98 10/12/18 00:03 101 H 100 10/12/18 00:00 37.0 C 20 10/11/18 23:58 112 H 99 10/11/18 23:53 103 H 99 10/11/18 23:48 101 H 100 10/11/18 23:45 85 133/74 10/11/18 23:43 92 H 100 10/11/18 23:38 98 H 100 10/11/18 23:33 110 H 100 10/11/18 23:28 112 H 100 10/11/18 23:23 106 H 100 10/11/18 23:18 94 H 100 10/11/18 23:14 86 135/75 10/11/18 23:13 102 H 100 10/11/18 23:08 104 H 100 10/11/18 23:03 94 H 100 10/11/18 22:58 98 H 100 10/11/18 22:53 101 H 100 10/11/18 22:48 96 H 100 10/11/18 22:44 96 H 126/83 10/11/18 22:43 92 H 99 10/11/18 22:38 102 H 100 10/11/18 22:33 104 H 99 10/11/18 22:28 94 H 99 10/11/18 22:23 88 100 10/11/18 22:18 101 H 99 10/11/18 22:14 83 132/83 10/11/18 22:13 86 100 07/30/19 22:08 102 H 98 10/11/18 22:03 104 H 98 10/11/18 21:58 86 99 10/11/18 21:53 95 H 99 10/11/18 21:48 89 98 10/11/18 21:45 36.7 C 18 10/11/18 21:44 96 H 133/78 10/11/18 21:43 81 97 10/11/18 21:38 101 H 98 10/11/18 21:33 102 H 97 10/11/18 21:28 94 H 97 10/11/18 21:23 83 97 10/11/18 21:18 77 97 10/11/18 21:16 75 130/81 10/11/18 21:13 86 96 10/11/18 21:08 76 97 10/11/18 21:03 77 97 10/11/18 20:58 94 H 98 10/11/18 20:53 96 H 98 10/11/18 20:48 74 97 10/11/18 20:44 96 H 126/74 10/11/18 20:43 86 97 10/11/18 20:38 88 97 10/11/18 20:33 79 98 10/11/18 20:28 102 H 97 10/11/18 20:23 89 97 10/11/18 20:18 84 97 10/11/18 20:16 81 125/73 10/11/18 20:13 89 97 10/11/18 20:08 85 98 10/11/18 20:03 84 98 10/11/18 20:00 36.6 C 18 10/11/18 19:58 79 97 10/11/18 19:53 87 98 10/11/18 19:48 76 98 10/11/18 19:44 74 120/71 10/11/18 19:43 76 97 10/11/18 19:38 75 97 10/11/18 19:33 82 96 10/11/18 19:28 83 98 10/11/18 19:23 83 98 10/11/18 19:18 80 97 10/11/18 19:14 93 H 116/74 10/11/18 19:13 84 97 10/11/18 19:08 90 98 10/11/18 19:03 84 96 10/11/18 18:58 77 96 07/30/19 18:53 79 97 10/11/18 18:48 72 97 10/11/18 18:44 83 109/67 10/11/18 18:43 77 97 10/11/18 18:38 80 97 10/11/18 18:33 75 97 10/11/18 18:28 80 97 10/11/18 18:23 80 97
--- NOTE | 2018-10-12 07:25 | Labor Progress Brief Note ---
Date of Service October 12, 2018 Subjective Pushing. Feels lots of pelvic pressure and low back pain. Still wants to continue pushing. Assessment & Plan (1) Group B streptococcal carriage complicating : PCN continues. Present on Admission?: Yes (2) Normal labor and delivery: Pushing well. Discussed elevated baseline heart rate with patient, kiel tly afebrile and still moderate variability so no urgent need to move to , however patient made aware there may be limited reserve to cope with a prolonged second stage. She desires continued efforts to push and attempt vaginal delivery. Also discussed patient with Dr. Ramirez who is now beginning shift coverage. He is already familiar with this patient and was made aware of her current stage of labor and heart tracing. Present on Admission?: Yes Physical Exam Physical Exam: /+2. Pushing well. Some molding and caput but not more than when second stage began. Labial edema perhaps a bit better, certainly not worse. FHT noted baseline 175 but still with mod variability, variable decels during pushes only. Temp 37.1 taken now at my request. [place] Q2m. Pit @ 19. Results & Data Vital Signs (Past 12 Hours) Vital Signs Temp Pulse Resp BP Pulse Ox 10/12/18 07:14 133 H 97 10/12/18 07:09 159 H 99 10/12/18 07:04 135 H 98 10/12/18 06:59 135 H 98 10/12/18 06:54 116 H 99 10/12/18 06:49 104 H 100 10/12/18 06:45 139 H 124/80 10/12/18 06:44 137 H 99 10/12/18 06:39 123 H 100 10/12/18 06:34 116 H 100 10/12/18 06:29 108 H 100 10/12/18 06:24 136 H 100 10/12/18 06:18 128 H 100 10/12/18 06:16 122 H 140/100 10/12/18 06:13 130 H 100 10/12/18 06:08 99 H 98 10/12/18 06:03 115 H 99 10/12/18 05:58 95 H 95 10/12/18 05:56 106 H 94 10/12/18 05:53 96 H 98 10/12/18 05:48 91 H 98 10/12/18 05:45 36.8 C 97 H 126/67 10/12/18 05:43 103 H 99 10/12/18 05:38 87 97 10/12/18 05:33 94 H 99 10/12/18 05:28 89 96 10/12/18 05:23 83 99 10/12/18 05:18 99 H 96 10/12/18 05:15 82 116/66 10/12/18 05:13 88 97 10/12/18 05:08 115 H 100 10/12/18 05:03 89 98 10/12/18 04:58 100 H 98 10/12/18 04:53 86 98 10/12/18 04:48 94 H 97 10/12/18 04:46 95 H 118/75 10/12/18 04:43 85 97 10/12/18 04:38 102 H 97 10/12/18 04:33 79 97 10/12/18 04:28 77 98 10/12/18 04:23 93 H 98 10/12/18 04:18 91 H 98 10/12/18 04:13 80 99 10/12/18 04:08 89 99 10/12/18 04:06 36.7 C 18 10/12/18 04:03 97 H 100 10/12/18 03:58 83 98 10/12/18 03:53 99 H 98 10/12/18 03:48 85 97 10/12/18 03:44 82 125/57 L 10/12/18 03:43 93 H 98 10/12/18 03:38 82 97 10/12/18 03:33 94 H 98 10/12/18 03:28 79 98 10/12/18 03:23 90 98 10/12/18 03:18 83 100 10/12/18 03:15 83 132/67 10/12/18 03:13 95 H 99 10/12/18 03:08 85 98 10/12/18 03:03 89 99 10/12/18 03:00 18 10/12/18 02:58 86 99 10/12/18 02:53 94 H 100 10/12/18 02:48 105 H 98 10/12/18 02:45 92 H 119/65 10/12/18 02:43 72 97 10/12/18 02:38 94 H 97 10/12/18 02:33 98 H 97 10/12/18 02:28 94 H 97 10/12/18 02:23 77 97 10/12/18 02:18 96 H 98 10/12/18 02:14 92 H 115/72 10/12/18 02:13 92 H 97 10/12/18 02:08 97 H 98 10/12/18 02:03 94 H 100 10/12/18 02:00 37.1 C 18 10/12/18 01:58 83 98 10/12/18 01:53 90 98 10/12/18 01:48 83 99 10/12/18 01:45 83 131/82 10/12/18 01:43 85 98 10/12/18 01:38 90 100 10/12/18 01:33 90 99 10/12/18 01:28 84 100 10/12/18 01:23 90 100 10/12/18 01:19 105 H 94 10/12/18 01:18 86 97 10/12/18 01:14 90 109/64 10/12/18 01:13 102 H 98 10/12/18 01:08 92 H 100 10/12/18 01:03 112 H 98 10/12/18 00:58 96 H 98 10/12/18 00:53 103 H 100 10/12/18 00:48 105 H 99 10/12/18 00:45 82 120/63 10/12/18 00:43 90 99 10/12/18 00:38 104 H 100 10/12/18 00:33 94 H 100 10/12/18 00:28 99 H 98 10/12/18 00:23 87 97 10/12/18 00:18 133 H 99 10/12/18 00:15 93 H 127/66 10/12/18 00:13 98 H 97 10/12/18 00:08 110 H 98 10/12/18 00:03 101 H 100 10/12/18 00:00 37.0 C 20 10/11/18 23:58 112 H 99 10/11/18 23:53 103 H 99 10/11/18 23:48 101 H 100 10/11/18 23:45 85 133/74 10/11/18 23:43 92 H 100 10/11/18 23:38 98 H 100 10/11/18 23:33 110 H 100 10/11/18 23:28 112 H 100 10/11/18 23:23 106 H 100 10/11/18 23:18 94 H 100 10/11/18 23:14 86 135/75 10/11/18 23:13 102 H 100 10/11/18 23:08 104 H 100 10/11/18 23:03 94 H 100 10/11/18 22:58 98 H 100 10/11/18 22:53 101 H 100 10/11/18 22:48 96 H 100 10/11/18 22:44 96 H 126/83 10/11/18 22:43 92 H 99 10/11/18 22:38 102 H 100 10/11/18 22:33 104 H 99 10/11/18 22:28 94 H 99 10/11/18 22:23 88 100 10/11/18 22:18 101 H 99 10/11/18 22:14 83 132/83 10/11/18 22:13 86 100 10/11/18 22:08 102 H 98 10/11/18 22:03 104 H 98 10/11/18 21:58 86 99 10/11/18 21:53 95 H 99 10/11/18 21:48 89 98 10/11/18 21:45 36.7 C 18 10/11/18 21:44 96 H 133/78 10/11/18 21:43 81 97 10/11/18 21:38 101 H 98 10/11/18 21:33 102 H 97 10/11/18 21:28 94 H 97 10/11/18 21:23 83 97 10/11/18 21:18 77 97 10/11/18 21:16 75 130/81 10/11/18 21:13 86 96 10/11/18 21:08 76 97 10/11/18 21:03 77 97 10/11/18 20:58 94 H 98 10/11/18 20:53 96 H 98 10/11/18 20:48 74 97 10/11/18 20:44 96 H 126/74 10/11/18 20:43 86 97 10/11/18 20:38 88 97 10/11/18 20:33 79 98 10/11/18 20:28 102 H 97 10/11/18 20:23 89 97 10/11/18 20:18 84 97 10/11/18 20:16 81 125/73 10/11/18 20:13 89 97 10/11/18 20:08 85 98 10/11/18 20:03 84 98 10/11/18 20:00 36.6 C 18 10/11/18 19:58 79 97 10/11/18 19:53 87 98 10/11/18 19:48 76 98 10/11/18 19:44 74 120/71 10/11/18 19:43 76 97 10/11/18 19:38 75 97 10/11/18 19:33 82 96 10/11/18 19:28 83 98 10/11/18 19:23 83 98
--- NOTE | 2018-10-12 07:36 | Labor Progress Brief Note ---
Date of Service October 12, 2018 Assessment & Plan (1) Normal labor and delivery: Patient evaluated due to FHT 200 noted after recent push. Pushing is bringing head to +3 with scalp visible between labia now, and mom continues effective pushing. With next push FHT returned to 150s and maintains moderate variability. Patient wishes to continue second stage. Results & Data Vital Signs (Past 12 Hours) Vital Signs Temp Pulse Resp BP Pulse Ox 10/12/18 07:29 159 H 99 10/12/18 07:24 119 H 97 10/12/18 07:19 154 H 98 10/12/18 07:18 37.1 C 22 10/12/18 07:14 133 H 97 10/12/18 07:09 159 H 99 10/12/18 07:04 135 H 98 10/12/18 06:59 135 H 98 10/12/18 06:54 116 H 99 10/12/18 06:49 104 H 100 10/12/18 06:45 139 H 124/80 10/12/18 06:44 137 H 99 10/12/18 06:39 123 H 100 10/12/18 06:34 116 H 100 10/12/18 06:29 108 H 100 10/12/18 06:24 136 H 100 10/12/18 06:18 128 H 100 10/12/18 06:16 122 H 140/100 10/12/18 06:13 130 H 100 10/12/18 06:08 99 H 98 10/12/18 06:03 115 H 99 10/12/18 05:58 95 H 95 10/12/18 05:56 106 H 94 10/12/18 05:53 96 H 98 10/12/18 05:48 91 H 98 10/12/18 05:45 36.8 C 97 H 126/67 10/12/18 05:43 103 H 99 10/12/18 05:38 87 97 10/12/18 05:33 94 H 99 10/12/18 05:28 89 96 10/12/18 05:23 83 99 10/12/18 05:18 99 H 96 10/12/18 05:15 82 116/66 10/12/18 05:13 88 97 10/12/18 05:08 115 H 100 10/12/18 05:03 89 98 10/12/18 04:58 100 H 98 10/12/18 04:53 86 98 10/12/18 04:48 94 H 97 10/12/18 04:46 95 H 118/75 10/12/18 04:43 85 97 10/12/18 04:38 102 H 97 10/12/18 04:33 79 97 10/12/18 04:28 77 98 10/12/18 04:23 93 H 98 10/12/18 04:18 91 H 98 10/12/18 04:13 80 99 10/12/18 04:08 89 99 10/12/18 04:06 36.7 C 18 10/12/18 04:03 97 H 100 10/12/18 03:58 83 98 10/12/18 03:53 99 H 98 10/12/18 03:48 85 97 10/12/18 03:44 82 125/57 L 10/12/18 03:43 93 H 98 10/12/18 03:38 82 97 10/12/18 03:33 94 H 98 10/12/18 03:28 79 98 10/12/18 03:23 90 98 10/12/18 03:18 83 100 10/12/18 03:15 83 132/67 10/12/18 03:13 95 H 99 10/12/18 03:08 85 98 10/12/18 03:03 89 99 10/12/18 03:00 10/12/18 02:58 86 99 10/12/18 02:53 94 H 100 10/12/18 02:48 105 H 98 10/12/18 02:45 92 H 119/65 10/12/18 02:43 72 97 10/12/18 02:38 94 H 97 10/12/18 02:33 98 H 97 10/12/18 02:28 94 H 97 10/12/18 02:23 77 97 10/12/18 02:18 96 H 98 10/12/18 02:14 92 H 115/72 10/12/18 02:13 92 H 97 10/12/18 02:08 97 H 98 10/12/18 02:03 94 H 100 10/12/18 02:00 37.1 C 18 10/12/18 01:58 83 98 10/12/18 01:53 90 98 10/12/18 01:48 83 99 10/12/18 01:45 83 131/82 10/12/18 01:43 85 98 10/12/18 01:38 90 100 10/12/18 01:33 90 99 10/12/18 01:28 84 100 10/12/18 01:23 90 100 10/12/18 01:19 105 H 94 10/12/18 01:18 86 97 10/12/18 01:14 90 109/64 10/12/18 01:13 102 H 98 10/12/18 01:08 92 H 100 10/12/18 01:03 112 H 98 10/12/18 00:58 96 H 98 10/12/18 00:53 103 H 100 10/12/18 00:48 105 H 99 10/12/18 00:45 82 120/63 10/12/18 00:43 90 99 10/12/18 00:38 104 H 100 10/12/18 00:33 94 H 100 10/12/18 00:28 99 H 98 10/12/18 00:23 87 97 10/12/18 00:18 133 H 99 10/12/18 00:15 93 H 127/66 10/12/18 00:13 98 H 97 10/12/18 00:08 110 H 98 10/12/18 00:03 101 H 100 10/12/18 00:00 37.0 C 20 10/11/18 23:58 112 H 99 10/11/18 23:53 103 H 99 10/11/18 23:48 101 H 100 10/11/18 23:45 85 133/74 10/11/18 23:43 92 H 100 10/11/18 23:38 98 H 100 10/11/18 23:33 110 H 100 10/11/18 23:28 112 H 100 10/11/18 23:23 106 H 100 10/11/18 23:18 94 H 100 10/11/18 23:14 86 135/75 10/11/18 23:13 102 H 100 10/11/18 23:08 104 H 100 10/11/18 23:03 94 H 100 10/11/18 22:58 98 H 100 10/11/18 22:53 101 H 100 10/11/18 22:48 96 H 100 10/11/18 22:44 96 H 126/83 10/11/18 22:43 92 H 99 10/11/18 22:38 102 H 100 10/11/18 22:33 104 H 99 10/11/18 22:28 94 H 99 10/11/18 22:23 88 100 10/11/18 22:18 101 H 99 10/11/18 22:14 83 132/83 10/11/18 22:13 86 100 10/11/18 22:08 102 H 98 10/11/18 22:03 104 H 98 10/11/18 21:58 86 99 10/11/18 21:53 95 H 99 10/11/18 21:48 89 98 10/11/18 21:45 36.7 C 18 10/11/18 21:44 96 H 133/78 10/11/18 21:43 81 97 10/11/18 21:38 101 H 98 10/11/18 21:33 102 H 97 10/11/18 21:28 94 H 97 10/11/18 21:23 83 97 10/11/18 21:18 77 97 10/11/18 21:16 75 130/81 10/11/18 21:13 86 96 10/11/18 21:08 76 97 10/11/18 21:03 77 97 10/11/18 20:58 94 H 98 10/11/18 20:53 96 H 98 10/11/18 20:48 74 97 10/11/18 20:44 96 H 126/74 10/11/18 20:43 86 97 10/11/18 20:38 88 97 10/11/18 20:33 79 98 10/11/18 20:28 102 H 97 10/11/18 20:23 89 97 10/11/18 20:18 84 97 10/11/18 20:16 81 125/73 10/11/18 20:13 89 97 10/11/18 20:08 85 98 10/11/18 20:03 84 98 10/11/18 20:00 36.6 C 18 10/11/18 19:58 79 97 10/11/18 19:53 87 98 10/11/18 19:48 76 98 10/11/18 19:44 74 120/71 10/11/18 19:43 76 97 10/11/18 19:38 75 97
--- NOTE | 2018-10-12 08:27 | Anesthesia Procedure Note ---
Date of Service October 12, 2018 Anesthesia Post Epidural Note Vital Signs Vital Signs: Temp Pulse Resp BP Pulse Ox 37.1 C 122 H 22 119/75 99 10/12/18 07:18 10/12/18 08:25 10/12/18 07:18 10/12/18 08:25 10/12/18 08:04 Pain Intensity Vaginal: Pain Intensity: 1 Notes Mental Status: alert / awake / arousable and participated in evaluation Nausea / Vomiting: adequately controlled Pain: adequately controlled Airway Patency, RR, SpO2: stable & adequate BP & HR: stable & adequate Hydration State: stable & adequate Neuraxial Anesthesia: was administered and sensory block is resolving Anesthetic Complications: no major complications apparent Epidural: Removed without complications and With tip intact
--- NOTE | 2018-10-12 08:29 | Delivery Summary ---
Vaginal Delivery Summary Date of Service October 12, 2018 Vaginal Delivery Summary DIAGNOSES: 1. Pena intrauterine at 39wk 4d gestation. 2. Spontaneous onset of labor. 3. Group B Streptococcus POS, delayed initiation of antibiotics 4. Thick meconium. 5. Two hour second stage of labor PROCEDURE: Spontaneous vaginal delivery and repair of 1st degree laceration. SURGEON: Asiya Capone MD. ALUMINUM HYDROXIDE PROCESS OPERATOR: None. ESTIMATED BLOOD LOSS: 350 mL. COMPLICATIONS: None. PLACENTA: Spontaneous and intact with a 3-vessel cord. DISPOSITION: Stable to labor and delivery. DESCRIPTION: The patient pushed well and brought the head to in OP position. The infant's head was allowed to deliver with contraction force and no further active pushing, with the perineum protected during this time. The shoulders delivered easily with a maternal pushing effort. There was no nuchal cord. The right shoulder was anterior and the right arm also noted to be compound presentation at the neck. The body delivered without any difficulty, and the was placed on the maternal abdomen. The cord was doubly clamped by the MD and then cut by the FOB. The infant was brought to the warmer where Dr. Ramirez was waiting to provide suction and resuscitation due to meconium; see peds note for details. The placenta delivered spontaneously and was noted to be intact and with a 3VC. The cervix, vagina and perineum were examined and were found to have a nearly-hemostatic 1st degree laceration, for which the patient was offered and accepted repair. This was done with vicryl suture in running locked fashion. The fundus was firm and lochia minimal immediately after delivery.
[2018-10-12 09:29] LABS: Base Excess Cord Venous Blood -7.4 mEq/L (-7.7-1.9); Cord Venous Blood HCO3 18 mmol/L (18.4-26.8); Cord Venous Blood PCO2 36 mmHg (30.4-57.2); Cord Venous Blood PO2 33 mmHg (14.1-43.3); Cord Venous Blood pH 7.32 (7.20-7.44)
[2018-10-12] MEDS ORDERED: IBUPROFEN 600 MG TAB PO PRN (10:54)
[2018-10-12] MEDS ORDERED: BENZOCAINE 20% AER SPR 82.5 GM CAN EXT PRN (10:54)
[2018-10-12] MEDS ORDERED: DIPHTHERIA/TETANUS/PERTUSSIS 0.5 ML SYR/VIAL IM ONE (10:54)
[2018-10-12] MEDS ORDERED: OXYTOCIN 30 UNITS/500 ML BAG IV PRN (10:54)
[2018-10-12] MEDS ORDERED: HYDROCORTISONE ACETATE 25 MG SUPP PR PRN (10:54)
[2018-10-12] MEDS ORDERED: ACETAMINOPHEN 325 MG TAB PO PRN (10:54)
[2018-10-12] MEDS ORDERED: OXYCODONE/ACETAMINOPHEN 5mg/325mg TAB PO PRN (10:54)
[2018-10-12] MEDS ORDERED: SUPERCREAM 0.870% 15 GM JAR EXT PRN (10:54)
[2018-10-12] MEDS: DOCUSATE SODIUM 100 MG CAP PO SCH (20:32)
--- NOTE | 2018-10-13 06:22 | Obstetrical Progress Note ---
Date of Service October 13, 2018 day #1 from spontaneous vaginal delivery patient is doing well she has minimal bleeding she has no extremity pain she is ambulating Assessment & Plan (1) Normal labor and delivery: Ambulation continue current care Physical Exam Constitutional WD/WN, vitals as above Respiratory normal respiratory effort, lungs clear to auscultation Genitourinary Uterus firm nontender extremity exam negative Results & Data Vital Signs (Past 12 Hours) Vital Signs Temp Pulse Resp BP Pulse Ox 10/13/18 04:50 36.5 C 82 16 120/80 98 10/12/18 23:35 36.8 C 85 16 121/80 100 10/12/18 19:23 36.9 C 102 H 18 131/82 97
[2018-10-13 07:06] LABS: Hematocrit (blood only) 26.9 % (37-47); Hemoglobin 9.1 g/dL (12.0-16.0); Mean Corpuscular Hgb Conc 33.8 g/dL (32-36); Mean Corpuscular Volume 87.9 fL (80-100); Mean Platelet Volume 10.5 fL (7.4-10.4); Platelet Count 174 K/uL (130-400); RDW Coefficient of Variation 13.7 % (11.5-14.5); RDW Standard Deviation 43.6 fL (36.4-46.3); Red Blood Count 3.06 M/uL (4.2-5.4); White Blood Count 19.32 K/uL (4.8-10.8)
[2018-10-13] MEDS: DOCUSATE SODIUM 100 MG CAP PO SCH ×2 (08:48→20:33)
[2018-10-13] MEDS: PRENATAL VITAMIN 1 TAB PO SCH (08:48)
[2018-10-13] MEDS ORDERED: BISACODYL 5 MG TABEC PO SCH (20:00)
[2018-10-14 06:50] LABS: Hematocrit (blood only) 26.7 % (37-47)
[2018-10-14] MEDS ORDERED: BISACODYL 10 MG SUPP PR PRN (07:00)
[2018-10-14] MEDS: PRENATAL VITAMIN 1 TAB PO SCH (07:40)
[2018-10-14] MEDS: DOCUSATE SODIUM 100 MG CAP PO SCH (07:40)
--- NOTE | 2018-10-14 08:00 | Obstetrical Progress Note ---
Date of Service <Lian Ogden MD - Last Filed: 10/14/18 08:00> October 14, 2018 Assessment & Plan <Lian Ogden MD - Last Filed: 10/14/18 08:00> (1) Normal labor and delivery: (2) Prolonged latent phase of labor: (3) with 39 completed weeks gestation: (4) Group B streptococcal carriage complicating : Subjective <Lian Ogden MD - Last Filed: 10/14/18 08:00> Ambulation: ambulating normally Voiding: no voiding problems Passing Gas:: Yes Diet Tolerance:: regular diet Lochia:: Small Feeding Type:: breast feeding Current Pain Level(1-10): 1 Constitutional: no fever, no chills and no weakness Cardiovascular: + edema; no chest pain, no chest pain at rest, no palpitations and no calf pain Breast: no breast pain Gastrointestinal: no abdominal pain, no nausea, no vomiting, no change in bowel habits and no constipation Genitourinary (female): no dysuria Physical Exam <Lian Ogden MD - Last Filed: 10/14/18 08:00> Constitutional WD/WN, vitals as above Respiratory normal respiratory effort, lungs clear to auscultation Auscultation: no crackles, no rales, no rhonchi and no wheezes Cardiovascular Rate/Rhythm: regular rate and regular rhythm Heart Sounds: no gallop, no murmur and no cardiac rub Gastrointestinal (Abdomen) Inspection/Auscultation: abdomen normal to inspection, + abdomen distended and normal bowel sounds Percussion/Palpation: abdomen soft; abdomen nontender Results & Data <Lian Ogden MD - Last Filed: 10/14/18 08:00> Vital Signs (Past 12 Hours) Vital Signs Temp Pulse Resp BP Pulse Ox 10/13/18 23:40 36.7 C 72 16 122/86 98 <Shellie Reyes DO - Last Filed: 10/14/18 08:13> Co-Signing Physician Notes Resident Physician Supervision Note: I interviewed and examined the patient. Discussed with Dr. Ogden and agree with findings and plan as documented in the note. Any exceptions or clarifications are listed here: PPD#2 doing well. DC home today. Instructions discussed . Documented By: Shellie Reyes DO
== END 2018-10-14 11:30 | disposition home or self-care (01) | DRG 807 ==
LOC: OPB 10:09 → 4S1 10:12 → 4S2 10-12 12:08